=== PATIENT | female | born 1940 | race Caucasian/White ===

== ENCOUNTER 2023-01-04 10:24 | Emergency (ER) | payer MEDICARE, SELFPAY ==
[2023-01-04 10:26] VITALS: TEMP 36.3; BMI 30.7
[2023-01-04 10:31] VITALS: BP 147/90; PULSE 88; RESP 24; O2SAT 96
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
[2023-01-04] MEDS: 0.9% Normal Saline 1,000 ML 150 ML IV (10:48)
[2023-01-04] MEDS: fentaNYL 100 MCG/2 ML Ampul 50 MCG IV ×2 (10:48→11:47)
[2023-01-04] MEDS: Ondansetron 4 MG/2 ML Vial IV (10:48)
[2023-01-04 10:59] LABS: Absolute Lymphocyte Count 2.17 X10^3/uL (0.83-4.51); Absolute Neutrophil Count 8.5 X10^3/uL (2.0-7.7); Basophil# 0.07 X10^3/uL; Basophil% 0.6 % (0-1); Eosinophils% 0.8 % (0-5); Hematocrit 38.6 % (37-47); Hemoglobin 12.6 g/dL (12.0-15.0); Lymphocyte # 2.17 X10^3/ul (0.83-4.51); Lymphocyte % 18.4 % (19-41); Mean Corp Hgb Conc 32.6 g/dL (32-36); Mean Corpuscular Hgb 32.5 pg (27.0-32.0); Mean Corpuscular Volume 99.5 fL (81-99); Mean Platelet Vol. 9.6 fl (6.2-12.0); Monocyte# 0.71 X10^3/uL; NRBC Flagged by Analyzer 0 % (0-5); Neutrophil # 8.47 X10^3/uL (2.7-7.7); Neutrophil % 71.8 % (47-70); Platelet Count 212 K/mm3 (150-450); RBC Distribution Width CV 12.3 % (11.6-14.6); RBC Distribution Width SD 45.1 fl (35.1-43.9); Red Blood Count 3.88 M/mm3 (4.2-5.4); White Blood Count 11.8 K/mm3 (4.4-11.0)
[2023-01-04 11:07] LABS: Prothrombin Time (Protime)PT. 13.4 SECONDS (11.7-14.9)
[2023-01-04 11:08] LABS: Partial Thromboplast Time 26.6 Seconds (24.1-36.2)
[2023-01-04 11:16] LABS: Anion Gap 8 (5-15); BUN 22 mg/dL (7-18); BUN/Creat Ratio 25.1 RATIO (10-20); Chloride 109 mmol/L (98-107); Creatinine, Serum 0.88 mg/dL (0.55-1.02); EST Glomerular Filtration Rate 66 mL/min (>60); Est Glom Filt Rate - Afr Amer 80 mL/min (>60); Estimated Creatinine Clearance 40.33 ml/min; Glucose 120 mg/dL (74-106); Potassium 3.6 mmol/L (3.5-5.1); Sodium Level 143 mmol/L (136-145)
[2023-01-04 11:48] VITALS: BP 128/83; PULSE 75; RESP 14; O2SAT 92
[2023-01-04 11:50] VITALS: O2SAT 100; O2SAT 85
[2023-01-04] MEDS: oxyCODONE 5 MG Tablet PO (13:15)
[2023-01-04 14:10] LABS: Bacteria 0 SEEN /hpf (None Seen); Mucous, Urine 0 SEEN /hpf (<or=2+)
[2023-01-04 14:13] LABS: Color, Urine Red (Yellow); Glucose, Dipstick Normal (Normal); Ketone-Dipstick 15 mg/dl (Negative); Leukocyte Esterase-Dipstick Negative /ul (Negative); Nitrite-Dipstick Negative (Negative); Occult Blood-Urine 250 /ul (Negative); Protein-Dipstick 500 mg/dl (Negative); Urine Bilirubin Dipstick Negative (Negative); Urine Clarity Cloudy (Clear); Urine Urobilinogen Normal (Normal)
[2023-01-04 14:18] VITALS: BP 102/64; PULSE 76; RESP 16; O2SAT 99
[2023-01-04 14:19] LABS: Red Blood Cells-Urine > 100 SEEN /hpf (0-5)
[2023-01-04 14:21] LABS: Squamous Epithelial Cells - UA 0-5 SEEN /hpf (5-10)
[2023-01-04 14:22] LABS: White Blood Cells 0-5 SEEN /hpf (0-5)
--- NOTE | 2023-01-04 14:51 | NURSING ---
CALLED [facility]. TALKED TO GWENDOLYN. DR JEAN TALKING TO DR BEARDEN
[2023-01-04 15:07] VITALS: BP 118/65; PULSE 72; RESP 18; O2SAT 99
[2023-01-04] MEDS: Morphine 2 MG/ML Syringe IV (15:12)
--- NOTE | 2023-01-04 15:50 | NURSING ---
[address] BEARDEN NURSE TO NURSE [phone]
== END 2023-01-04 17:10 | disposition short-term general hospital (02) ==
PROVIDERS: Emergency Provider Emergency Medicine; Visit Provider Emergency Medicine
DX: S22.42XA Multiple fractures of ribs, left side, initial encounter for closed fracture (principal); S32.501A Unspecified fracture of right pubis, initial encounter for closed fracture; V53.9XXA Unspecified occupant of pick-up truck or van injured in collision with car, pick-up truck or van in traffic accident, initial encounter; R31.9 Hematuria, unspecified; E78.00 Pure hypercholesterolemia, unspecified; Z79.82 Long term (current) use of aspirin; Z79.899 Other long term (current) drug therapy
CPT/HCPCS: 51702; 70450; 71260; 72125; 74177; 80048; 81001; 85025; 85610; 85730; 93005; 96374; 96375; 96376; 99285; J7030; Q9967; A4216; J2405